=== PATIENT | male | born 1990 | race Caucasian/White ===

== ENCOUNTER 2017-07-03 10:18 | Emergency (ER) | payer SELFPAY ==
[~2017-07-03] VITALS: Ht 170.2 cm; Wt 80.0 kg
[2017-07-03 10:22] VITALS: Ht 170.2 cm; Wt 80.0 kg
[2017-07-03] MEDS ORDERED: HYDROCODONE/APAP (5/325) TAB PO ONE (11:00)
--- NOTE | 2017-07-03 11:49 | RADRPT ---
PROCEDURE: XR Forearm. CLINICAL INDICATION: Pain following injury TECHNIQUE: AP and lateral views of the left forearm were obtained. COMPARISON: No prior studies are available for comparison. FINDINGS: The osseous structures demonstrate normal alignment and mineralization. No acute fracture or disloc ation is seen. There is no periostitis identified. The joint spaces are preserved. There is soft tissue edema along the dorsum of the proximal forearm. No radiopaque foreign body identified. IMPRESSION: Soft tissue edema along the dorsum of the proximal forearm. No acute fracture or radiopaque foreign body is identified. RPTAT: HH .Luzma Walton MD, MD Date Time Electronically viewed and signed by .Luzma Walton MD, MD on 07/03/2017 11:49 .G/
[2017-07-03] MEDS ORDERED: SILVER NITRATE SWAB TOP ONE (13:30)
--- NOTE | 2017-07-03 13:45 | QN ---
Documentation Comment My independent concise history is left forearm laceration with sharp metal at work. My pertinent physical exam findings are left arm laceration which is deep down to the muscle layer, the patient has good capillary refill in all left sided fingers. 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 The plan is closure of the skin with simple interrupted sutures, discussion with Dr. Curtis who feels that outpatient follow- up in his office would be possible tomorrow for reevaluation and possible muscular repair. I told the patient that if he could not follow-up with Dr. Curtis tomorrow that he would need to follow-up within 24 hours with orthopedic surgeon for evaluation and possible muscular repair. He will be given Keflex to prevent infection. His tetanus is up-to-date. SUSHIL MONCADA MD Jul 03, 2017 13:45
--- NOTE | 2017-07-03 14:03 | ERD ---
ER Documentation Chief Complaint Chief Complaint Pt with L arm lac from metal pipe, bleeding-dressing reenforced. HPI Patient is a 26-year-old male with no medical problems who presents with a laceration to his left forearm. He was working today just prior to arrival and a short metal pipe fell and hit him in the arm and cut his left forearm. He has had no treatment as of yet. He came directly to the ER. It is painful. He has no other injuries. He is right-handed. ROS All systems reviewed and are negative except as per history of present illness. Allergies Allergies: Coded Allergies: No Known Allergy (Unverified , 07/03/17) PMhx/Soc Medical and Surgical Hx: pt denies Medical Hx, pt denies Surgical Hx Hx Alcohol Use: Yes (Social drinker) Hx Substance Use: Yes (Smoking marijuana) Hx Tobacco Use: No Smoking Status: Never smoker FmHx Family History: No diabetes Physical Exam Vitals Vital Signs Date Time Temp Pulse Resp B/P Pulse Ox O2 Delivery O2 Flow Rate FiO2 07/03/17 10:22 99.0 66 20 147/96 96 Physical Exam Const: Moderate distress secondary to pain Head: Atraumatic Eyes: Normal Conjunctiva ENT: Normal External Ears, Nose and Mouth. Neck: Full range of motion..~ No meningismus. Resp: Clear to auscultation bilaterally Cardio: Regular rate and rhythm, no murmurs Abd: Soft, non tender, non distended. Normal bowel sounds Skin: Semicircular shaped laceration through the skin and muscle to the left lateral forearm with swelling approximately 7 cm in length Back: No midline or flank tenderness Ext: Swelling to the left forearm with semicircular shaped 7 cm laceration, radial pulses strong in the left upper extremity, capillary refill less than 2 seconds in all 5 fingers Neur: Awake and alert, sensation intact of all 5 fingers to the left hand, able to flex and extend approximately 50% but not able to fully extend fingers or extend fingers to the third fourth and fifth on the left, space controller strength is decreased Results 24 hrs Current Medications Medications (Trade) Dose Ordered Sig/Linda Route PRN Reason Start Time Stop Time Status Last Admin Dose Admin Acetaminophen/ Hydrocodone Bitart ([place] (5/325)) 1 tab ONCE ONCE PO 07/03/17 11:00 07/03/17 11:01 DC 07/03/17 11:06 Silver Nitrate (Silver Nitrate Swabs) 5 stick ONCE ONCE TOP 07/03/17 13:30 07/03/17 13:31 DC Procedures/MDM Forearm x-ray shows no fracture or foreign body per radiology. Laceration Repair by me: Anesthesia: 1% lidocaine with epinephrine locally Location: Left forearm Tendon/Joint/Nerves: Patient has deep laceration of the muscle body but no obvious sign of nerve injury at this time Foreign body: None detected after copious irrigation and exploration Technique: Simple Interrupted Sutures Complexity: No subcutaneous sutures/mucosal repair/ edge excision Post Closure Length: 7 cm Patient's bleeding was controlled in the department and there is no indication of anemia. No evidence of compartment syndrome, neurologic injury, vascular injury, open joint, tendon laceration, or foreign body. Patient is appropriate for outpatient follow up. 48 hour wound check. Scar minimization instructions given. Splint Note Type: Volar Location: Left forearm Indication: Laceration repair Splint Assessment: Neurovascularly intact post splint placement with good fit. Patient is a 26-year-old male presents with a laceration of left forearm. There is a limitation to range of motion of the left hand at this time especially in the third, fourth, and fifth fingers and so there is concern for muscle body injury. I spoke with Dr. Curtis from orthopedic surgery who is the surgeon on-call and he said that with sensation intact as well as good capillary refill he doubts a neurovascular bundle injury at this time and feels the patient can be managed as an outpatient and will be willing to see the patient within 24 hours for reevaluation and possible muscle body repair. The patient will be given a prescription for Keflex, ibuprofen, and [place]. He had a laceration repair to close the skin in the emergency department but I did encourage extremely close follow-up with Dr. Curtis from orthopedic surgery or the orthopedic surgeon of his choice. He can return sooner for any worsening symptoms. He is right-handed. Critical Care: Time: 35 minutes excluding all billable procedures. Treatments/Evaluations: Close monitoring and treatment of unstable vital signs, cardiorespiratory, and neurologic status, while maintaining tight balance of fluid, respiratory, and cardiac interventions. Departure Diagnosis: Primary Impression: Laceration Condition: SUSHIL Ruiz MD Jul 03, 2017 14:03
[2017-07-03] MEDS ORDERED: HYDR-906 PO (14:04)
[2017-07-03] MEDS ORDERED: IBUP-1542 PO (14:04)
[2017-07-03] MEDS ORDERED: CEPH-443 PO (14:04)
[2017-07-03 15:04] VITALS: BP 130/74; PULSE 64; RESP 20; TEMP 98.8
== END 2017-07-03 15:04 | disposition home or self-care (01) ==
LOC: FTE 10:18
DX: S51.812A Laceration without foreign body of left forearm, initial encounter (principal); W20.8XXA Other cause of strike by thrown, projected or falling object, initial encounter; Y92.9 Unspecified place or not applicable
CPT/HCPCS: 73090